=== PATIENT | male | born 1980 | race Caucasian/White ===

== ENCOUNTER 2021-10-26 19:43 | Emergency (ER) | payer OTHER, SELFPAY ==
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
[2021-10-26 20:00] VITALS: O2SAT 79
[2021-10-26 20:16] LABS: Glucose, Whole Blood 55 mg/dL (60-115)
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
--- NOTE | 2021-10-26 21:07 | PC.NURSE ---
[facility] contacted, spoke with Angeline pt accepted, ref #: [id number]. pt demographics, and screening questions answered, pt received no more that 2L of fluids during code. [facility] to call back.
[2021-10-26 21:18] VITALS: BMI 28.0
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
== END 2021-10-26 22:49 | disposition expired ==
PROVIDERS: Emergency Provider Internal Medicine
DX: I46.9 Cardiac arrest, cause unspecified (principal); S27.329A Contusion of lung, unspecified, initial encounter; S41.112A Laceration without foreign body of left upper arm, initial encounter; S22.42XA Multiple fractures of ribs, left side, initial encounter for closed fracture; S42.352A Displaced comminuted fracture of shaft of humerus, left arm, initial encounter for closed fracture; V44.5XXA Car driver injured in collision with heavy transport vehicle or bus in traffic accident, initial encounter; Y93.89 Activity, other specified; Y92.410 Unspecified street and highway as the place of occurrence of the external cause; Y99.9 Unspecified external cause status
CPT/HCPCS: 31500; 71045; 82947; 96374; 96375; 99282; 99284; J0171; J3475